=== PATIENT | male | born 1930 | race Caucasian/White ===

== ENCOUNTER 2016-11-20 06:16 | Day surgery (SDC) | payer MEDICARE, BC ==
[~2016-11-20] VITALS: Ht 182.9 cm; Wt 86.4 kg
[2016-11-20] VITALS (9 sets, daily range): BP systolic 126–154; BP diastolic 67–88; PULSE 70–87; RESP 18–22; TEMP 96.5–97.8; O2SAT 94–100
[2016-11-20] MEDS ORDERED: SODIUM CHLOR 0.9% 1000 ML INJ 1,000 ML IV SCH (07:00)
[2016-11-20] MEDS ORDERED: ATOR40TA16 PO (07:10)
[2016-11-20] MEDS ORDERED: LISI10TA3 PO (07:10)
[2016-11-20] MEDS ORDERED: GLIP5TAB8 PO (07:10)
[2016-11-20] MEDS ORDERED: METF1000 PO (07:10)
[2016-11-20] MEDS ORDERED: MULT1TAB84 PO (07:10)
[2016-11-20] MEDS ORDERED: TAMS5CAP PO (07:10)
[2016-11-20] MEDS ORDERED: AMLO5TAB2 PO (07:10)
[2016-11-20] MEDS ORDERED: ASPI-147 PO (07:10)
[2016-11-20] MEDS ORDERED: VITA500T49 PO (07:10)
[2016-11-20 07:23] LABS: AUTOMATED NEUTROPHIL # 3.7 TH/MM3 (1.8-7.7); BASOPHIL % 0.7 % (0.0-2.0); EOSINOPHIL # 0.2 TH/MM3 (0-0.4); EOSINOPHIL % 2.3 % (0.0-4.0); HEMATOCRIT 31.9 % (39.0-51.0); HEMO FLAGS DIFF FINAL; LYMPH % 31.3 % (9.0-44.0); MEAN CELL VOLUME 92.2 FL (80.0-100.0); MEAN CORPUSCULAR HEMOGLOBIN 30.6 PG (27.0-34.0); MEAN CORPUSCULAR HGB CONC 33.2 % (32.0-36.0); MONO % 9.2 % (0.0-8.0); NEUT % 56.5 % (16.0-70.0); PLATELET COUNT 241 TH/MM3 (150-450); RED BLOOD COUNT 3.46 MIL/MM3 (4.50-5.90); RED CELL DISTRIBUTION WIDTH 12.6 % (11.6-17.2); WHITE BLOOD COUNT 6.5 TH/MM3 (4.0-11.0)
[2016-11-20 07:31] LABS: PROTHROMBIN TIME - PATIENT 10.7 SEC (9.8-11.6)
[2016-11-20] MEDS ORDERED: LIDOCAINE 1%/EPINEPHrine 1:100,000 SOLN 20 ML VIAL ONE (07:42)
[2016-11-20] MEDS ORDERED: MIDAZOLAM HCL 5 MG/5 ML VIAL ONE (08:19)
[2016-11-20] MEDS ORDERED: fentaNYL CITRATE 250 MCG/5 ML AMP ONE (08:19)
[2016-11-20 10:18] LABS: AUTOMATED NEUTROPHIL # 3.7 TH/MM3 (1.8-7.7); BASOPHIL % 0.5 % (0.0-2.0); EOSINOPHIL # 0.1 TH/MM3 (0-0.4); EOSINOPHIL % 1.2 % (0.0-4.0); HEMATOCRIT 30.4 % (39.0-51.0); HEMO FLAGS DIFF FINAL; LYMPH % 48.3 % (9.0-44.0); LYMPHOCYTE # 4.2 TH/MM3 (1.0-4.8); MEAN CELL VOLUME 92.8 FL (80.0-100.0); MEAN CORPUSCULAR HEMOGLOBIN 30.5 PG (27.0-34.0); MEAN CORPUSCULAR HGB CONC 32.9 % (32.0-36.0); MONO % 7.4 % (0.0-8.0); NEUT % 42.6 % (16.0-70.0); PLATELET COUNT 237 TH/MM3 (150-450); RED BLOOD COUNT 3.27 MIL/MM3 (4.50-5.90); RED CELL DISTRIBUTION WIDTH 12.7 % (11.6-17.2); WHITE BLOOD COUNT 8.7 TH/MM3 (4.0-11.0)
--- NOTE | 2016-11-20 12:27 | RADRPT ---
EXAM DATE/TIME: 11/20/2016 08:32 [facility] COMPARISON: No previous studies available for comparison. INDICATIONS : Increasing creatinine SEDATION TIME: 30 minutes BIOPSY SITE: Right kidney MEDICATION(S): 1.) 1.5 mg midazolam (Versed) IV 2.) 75 mcg fentanyl (Sublimaze) IV DEVICE(S): 1.) 18 gauge Temno core biopsy needle MEDICAL HISTORY : Hypertension. Cardiovascular disease. Renal disease, end stage. SURGICAL HISTORY : Coronary artery stent. ENCOUNTER: Initial ACUITY: 2 days PAIN SCORE: 0/10 LOCATION: Right kidney A total of two core specimen(s) were obtained and sent to the laboratory for pathologic evaluation. PROCEDURE: 1. CT guided renal biopsy. 2. Conscious sedation with continuous EKG and oximetry monitoring. 3. EKG and oximetry remained stable throughout the procedure. Prior to the procedure informed consent was obtained. Any appropriate prior imaging studies were rev iewed. Using automated exposure control and adjustment of the mA and/or kV according to patient size, radiat ion dose was kept as low as reasonably achievable to obtain optimal diagnostic quality images. The site was prepped in a sterile fashion. Full sterile technique was used, including cap, mask, jordon rile gloves and gown and a large sterile sheet. Hand hygiene and 2% chlorhexidine and/or betadine/al cohol prep was utilized per protocol for cutaneous antisepsis. The skin and subcutaneous tissues wer e infiltrated with local anesthetic solution. With CT guidance the previously identified target was localized. Biopsy was performed using the presc ribed needle as above. Adequate hemostasis was obtained with compression at the puncture site. Follow-up CT scan reveals no hemorrhage. The patient tolerated the procedure well and there were no complications. The patient was returned to the Radiology Outpatient Unit in stable condition. CONCLUSION: Uncomplicated CT guided biopsy. Cresencio Hartley MD on November 20, 2016 at 12:24 Board Certified Radiologist. This report was verified electronically.
[2016-11-20 12:50] LABS: AUTOMATED NEUTROPHIL # 3.2 TH/MM3 (1.8-7.7); BASOPHIL % 0.6 % (0.0-2.0); EOSINOPHIL # 0.1 TH/MM3 (0-0.4); EOSINOPHIL % 1.1 % (0.0-4.0); HEMATOCRIT 27.6 % (39.0-51.0); HEMO FLAGS DIFF FINAL; LYMPH % 28.3 % (9.0-44.0); LYMPHOCYTE # 1.5 TH/MM3 (1.0-4.8); MEAN CELL VOLUME 91.9 FL (80.0-100.0); MEAN CORPUSCULAR HEMOGLOBIN 31.4 PG (27.0-34.0); MEAN CORPUSCULAR HGB CONC 34.2 % (32.0-36.0); MONO % 8.4 % (0.0-8.0); NEUT % 61.6 % (16.0-70.0); PLATELET COUNT 210 TH/MM3 (150-450); RED CELL DISTRIBUTION WIDTH 12.7 % (11.6-17.2); WHITE BLOOD COUNT 5.3 TH/MM3 (4.0-11.0)
[2016-11-20 13:47] LABS: AUTOMATED NEUTROPHIL # 3.7 TH/MM3 (1.8-7.7); BASOPHIL # 0.1 TH/MM3 (0-0.2); BASOPHIL % 1.1 % (0.0-2.0); EOSINOPHIL # 0.1 TH/MM3 (0-0.4); EOSINOPHIL % 1.1 % (0.0-4.0); HEMO FLAGS DIFF FINAL; LYMPH % 29.5 % (9.0-44.0); LYMPHOCYTE # 1.8 TH/MM3 (1.0-4.8); MEAN CELL VOLUME 92.5 FL (80.0-100.0); MEAN CORPUSCULAR HEMOGLOBIN 30.8 PG (27.0-34.0); MEAN CORPUSCULAR HGB CONC 33.3 % (32.0-36.0); MONO % 8.4 % (0.0-8.0); NEUT % 59.9 % (16.0-70.0); PLATELET COUNT 221 TH/MM3 (150-450); RED BLOOD COUNT 3.02 MIL/MM3 (4.50-5.90); RED CELL DISTRIBUTION WIDTH 12.9 % (11.6-17.2); WHITE BLOOD COUNT 6.3 TH/MM3 (4.0-11.0)
== END 2016-11-20 15:20 | disposition home or self-care (01) ==
LOC: HRAD 06:16 → HRIP 06:18 → HRAD 15:20
PROVIDERS: ATTEND Internal Medicine Nephrology
DX: I12.0 Hypertensive chronic kidney disease with stage 5 chronic kidney disease or end stage renal disease (principal); N18.6 End stage renal disease; I25.10 Atherosclerotic heart disease of native coronary artery without angina pectoris; Z95.5 Presence of coronary angioplasty implant and graft; Z99.2 Dependence on renal dialysis
CPT/HCPCS: 50200; 77012; 85025; 85610; 85730; 88305; 88313; 88346; 88348; 88350; J2250; J3010; J7030

== ENCOUNTER 2017-04-23 14:48 | Observation (INO) | payer MEDICARE, BC ==
[~2017-04-23] VITALS: Ht 182.9 cm; Wt 82.1 kg
[~2017-04-23 14:48] MED LIST: AMLO5TAB2 PO; ASPI-147 PO; ATOR40TA16 PO; GLIP5TAB8 PO; LISI10TA3 PO; METF1000 PO; MULT1TAB84 PO; TAMS5CAP PO; VITA500T35 PO
[2017-04-23 14:53] VITALS: BP 196/98; PULSE 100; RESP 18; TEMP 98.2; O2SAT 98
--- NOTE | 2017-04-23 15:03 | PD ---
HPI Chief Complaint: General Weakness Time Seen by Provider: 14:53 Travel History International Travel<30 days: No Contact w/Intl Traveler<30days: No Traveled to known affect area: No History of Present Illness HPI PATIENT STATES THAT OVER WEEKEND HE STARTED TO FEEL WEAK, GENERALIZED WEAKNESS, ON SATURDAY HAD DIALYSIS BUT WAS TURNED AWAY ON SATURDAY DUE TO SHINGLES...HE PRESENTED TO [facility] WHERE he was prescribed valtrex and steroids. PFSH Past Medical History Cancer: Yes (SKIN CA) Cardiovascular Problems: Yes (HEART STENT 1998, CAD, [place]) Diabetes: Yes Patient Takes Glucophage: Yes Dialysis: Yes Endocrine: Yes (DIABETES) Genitourinary: Yes (HYDRONEPHROSIS) Hepatitis: Yes Hiatal Hernia: No Hypertension: Yes Immune Disorder: No Musculoskeletal: No Neurologic: No Psychiatric: No Reproductive: No Respiratory: No Immunizations Current: No Thyroid Disease: No Influenza Vaccination: No ?: Not Past Surgical History AICD: No Genitourinary Surgery: Yes (LITHOTRIPSY) Joint Replacement: No Pacemaker: No Social History Alcohol Use: No Tobacco Use: No Substance Use: No Allergies-Medications (Allergen,Severity, Reaction): Coded Allergies: No Known Allergies (Unverified , 04/23/17) Reported Meds & Prescriptions Reported Meds & Active Scripts Active Reported Valacyclovir (Valacyclovir HCl) 500 Mg Tab 500 Mg PO DAILY Dexamethasone 4 Mg Tab 20 Mg PO WEEKLY Multiple Vitamin 1 Tab 1 Tab PO DAILY Sodium Bicarbonate 650 Mg Tab 650 Mg PO BIDPC Vitamin B12 (Cyanocobalamin) 500 Mcg Tab 1,000 Mcg PO DAILY Glipizide 5 Mg Tab 5 Mg PO BIDAC Take 30 minutes before a meal Atorvastatin (Atorvastatin Calcium) 40 Mg Tab 40 Mg PO HS Flomax (Tamsulosin HCl) 0.4 Mg Cap 0.4 Mg PO HS Ecotrin Low Strength (Aspirin) 81 Mg Tabdr 81 Mg PO DAILY Physical Exam Narrative GENERAL: SKIN: Warm and dry. SKIN IN FRONT OF CHEST OVER LEFT PEC AND OVER LEFT CHEEK AREA HEAD: Atraumatic. Normocephalic. EYES: Pupils equal and round. No scleral icterus. No injection or drainage. ENT: No nasal bleeding or discharge. Mucous membranes pink and moist. NECK: Trachea midline. No JVD. CARDIOVASCULAR: Regular rate and rhythm. RESPIRATORY: No accessory muscle use. Clear to auscultation. Breath sounds equal bilaterally. GASTROINTESTINAL: Abdomen soft, non-tender, nondistended. MUSCULOSKELETAL: Extremities without clubbing, cyanosis, or edema. No obvious deformities. NEUROLOGICAL: Awake and alert. No obvious cranial nerve deficits. Motor grossly within normal limits. Five out of 5 muscle strength in the arms and legs. Normal speech. PSYCHIATRIC: Appropriate mood and affect; insight and judgment normal. Data Data Last Documented VS Vital Signs Date Time Temp Pulse Resp B/P (MAP) Pulse Ox O2 Delivery O2 Flow Rate FiO2 04/23/17 15:15 93 18 188/98 (128) 99 Room Air 04/23/17 14:53 98.2 Orders Orders Electrocardiogram (04/23/17 14:53) Complete Blood Count With Diff (04/23/17 14:53) Comprehensive Metabolic Panel (04/23/17 14:53) Ckmb (Isoenzyme) Profile (04/23/17 14:53) Troponin I (04/23/17 14:53) Lipase (04/23/17 14:53) Group A Rapid Strep Screen (04/23/17 14:53) Influenzae A/B Antigen (04/23/17 14:53) Chest, Single Ap (04/23/17 14:53) Ct Brain W/O Iv Contrast(Rout) (04/23/17 14:53) Iv Access Insert/Monitor (04/23/17 14:53) Ecg Monitoring (04/23/17 14:53) Oximetry (04/23/17 14:53) Strep Culture (Group A) (04/23/17 15:00) Aspirin Chew (Aspirin Chew) (04/23/17 16:45) Acetamin-Hydrocod 325-5 Mg ([place] 5-325 (04/23/17 17:00) Consult Nephrology (04/23/17 ) Place In Observation (04/23/17 ) Vital Signs (Adult) Q4H (04/23/17 16:58) Activity Oob With Assistance (04/23/17 16:58) Sodium Chloride 0.9% Flush (Ns Flush) (04/23/17 17:00) Sodium Chloride 0.9% Flush (Ns Flush) (04/23/17 21:00) Acetaminophen (Tylenol) (04/23/17 17:00) Ondansetron Inj (Zofran Inj) (04/23/17 17:00) Pt Request For Service (04/23/17 16:58) Scd Bilateral/Knee High DELLA.BID (04/23/17 16:58) Acetamin-Hydrocod 325-5 Mg ([place] 5-325 (04/23/17 17:00) Naloxone Inj (Narcan Inj) (04/23/17 17:00) Docusate Sodium-Senna (Kendy-Colace) (04/23/17 21:00) Magnesium Hydroxide Liq (Milk Of Magnesi (04/23/17 17:00) Sennosides (Senokot) (04/23/17 17:00) Bisacodyl Supp (Dulcolax Supp) (04/23/17 17:00) Lactulose Liq (Lactulose Liq) (04/23/17 17:00) Amlodipine (Norvasc) (04/24/17 09:00) Aspirin Ec (Ecotrin Ec) (04/24/17 09:00) Atorvastatin (Lipitor) (04/23/17 21:00) Cyanocobalamin (Vitamin B12) (04/24/17 09:00) Tamsulosin (Flomax) (04/23/17 21:00) Valacyclovir (Valtrex) (04/24/17 09:00) Multivitamin (Theragran) (04/24/17 09:00) Admit Order (Ed Use Only) (04/23/17 ) Diet 1999 Ada Cons Carb (04/23/17 Dinner) Bedside Glucose DELLA.CSUGAR (04/23/17 17:00) Blood Glucose Goal (Criteria) (04/23/17 17:00) Hypoglycemia 70 Mg/Dl Or < (04/23/17 17:00) Notify Dr: Other (04/23/17 17:00) Dextrose 50% In Justin (Vial) Inj (D50w (Vi (04/23/17 17:00) Glucagon Inj (Glucagon Inj) (04/23/17 17:00) Insulin Aspart Supplemtl Scale (Novolog (04/23/17 17:00) Sodium Bicarbonate (Sodium Bicarbonate) (04/23/17 18:00) Labs Laboratory Tests Test 04/23/17 15:30 White Blood Count 5.8 TH/MM3 Red Blood Count 2.71 MIL/MM3 Hemoglobin 8.3 GM/DL Hematocrit 24.7 % Mean Corpuscular Volume 91.2 FL Mean Corpuscular Hemoglobin 30.5 PG Mean Corpuscular Hemoglobin Concent 33.4 % Red Cell Distribution Width 11.9 % Platelet Count 118 TH/MM3 Mean Platelet Volume 9.9 FL Neutrophils (%) (Auto) 68.7 % Lymphocytes (%) (Auto) 16.1 % Monocytes (%) (Auto) 14.5 % Eosinophils (%) (Auto) 0.3 % Basophils (%) (Auto) 0.4 % Neutrophils # (Auto) 4.1 TH/MM3 Lymphocytes # (Auto) 0.9 TH/MM3 Monocytes # (Auto) 0.8 TH/MM3 Eosinophils # (Auto) 0.0 TH/MM3 Basophils # (Auto) 0.0 TH/MM3 CBC Comment DIFF FINAL Differential Comment Blood Urea Nitrogen 59 MG/DL Creatinine 6.00 MG/DL Random Glucose 140 MG/DL Total Protein 6.6 GM/DL Albumin 3.1 GM/DL Calcium Level 8.3 MG/DL Alkaline Phosphatase 49 U/L Aspartate Amino Transf (AST/SGOT) 7 U/L Alanine Aminotransferase (ALT/SGPT) 13 U/L Total Bilirubin 0.6 MG/DL Sodium Level 136 MEQ/L Potassium Level 4.3 MEQ/L Chloride Level 104 MEQ/L Carbon Dioxide Level 22.3 MEQ/L Anion Gap 10 MEQ/L Estimat Glomerular Filtration Rate 9 ML/MIN Total Creatine Kinase 65 U/L Troponin I 0.09 NG/ML Lipase 212 U/L MDM Medical Decision Making Medical Screen Exam Complete: Yes Emergency Medical Condition: Yes Medical Record Reviewed: Yes Interpretation(s) NSR 95, PVC, NO STEMI PATTERN, Differential Diagnosis FLU V PNA V ELECTROLYTE ABNL V PULM EDEMA Narrative Course signed out pending labs, ct results and dispo by dr duque Diagnosis Primary Impression: Generalized weakness Additional Impression: Anemia Scripts Amlodipine (Amlodipine) 5 Mg Tab 5 MG PO BID for Blood Pressure Management, #60 TAB 0 Refills Prov: Barbara mR MD 04/24/17 Jose D Brown MD Apr 23, 2017 15:03
[2017-04-23 15:15] VITALS: BP 188/98; PULSE 93; RESP 18; O2SAT 99
[2017-04-23] MEDS ORDERED: SODI650T PO (15:21)
[2017-04-23] MEDS ORDERED: VALA500T PO (15:21)
[2017-04-23] MEDS ORDERED: MULTTAB67 PO (15:21)
[2017-04-23] MEDS ORDERED: DEXA4TAB PO (15:21)
[2017-04-23 15:37] LABS: AUTOMATED NEUTROPHIL # 4.1 TH/MM3 (1.8-7.7); BASOPHIL % 0.4 % (0.0-2.0); EOSINOPHIL % 0.3 % (0.0-4.0); HEMATOCRIT 24.7 % (39.0-51.0); LYMPH % 16.1 % (9.0-44.0); LYMPHOCYTE # 0.9 TH/MM3 (1.0-4.8); MEAN CELL VOLUME 91.2 FL (80.0-100.0); MEAN CORPUSCULAR HEMOGLOBIN 30.5 PG (27.0-34.0); MEAN CORPUSCULAR HGB CONC 33.4 % (32.0-36.0); MONO % 14.5 % (0.0-8.0); NEUT % 68.7 % (16.0-70.0); PLATELET COUNT 118 TH/MM3 (150-450); RED BLOOD COUNT 2.71 MIL/MM3 (4.50-5.90); RED CELL DISTRIBUTION WIDTH 11.9 % (11.6-17.2); WHITE BLOOD COUNT 5.8 TH/MM3 (4.0-11.0)
[2017-04-23 15:44] LABS: HEMO FLAGS DIFF FINAL
[2017-04-23 15:47] LABS: CHLORIDE 104 MEQ/L (98-107); POTASSIUM 4.3 MEQ/L (3.5-5.1); SODIUM (NA) 136 MEQ/L (136-145)
[2017-04-23 15:51] LABS: ANION GAP 10 MEQ/L (5-15); BICARBONATE 22.3 MEQ/L (21.0-32.0); BLOOD UREA NITROGEN 59 MG/DL (7-18)
[2017-04-23 15:54] LABS: ALT (GPT) 13 U/L (12-78); AST (GOT) 7 U/L (15-37); GLOMERULAR FILTRATION RATE 9 ML/MIN (>89)
[2017-04-23 15:55] LABS: TOTAL BILIRUBIN ADULT 0.6 MG/DL (0.2-1.0)
[2017-04-23 15:57] LABS: ALKALINE PHOSPHATASE 49 U/L (45-117)
[2017-04-23 16:00] LABS: CREATINE KINASE 65 U/L (39-308)
--- NOTE | 2017-04-23 16:01 | RADRPT ---
EXAM DATE/TIME: 04/23/2017 15:52 [facility] COMPARISON: No previous studies available for comparison. INDICATIONS : Weakness and short of breath for 1 week. MEDICAL HISTORY : Hypertension. Cardiovascular disease. Renal disease, end stage. SURGICAL HISTORY : Coronary artery stent. ENCOUNTER: Initial ACUITY: 1 week PAIN SCORE: 2/10 LOCATION: Bilateral chest FINDINGS: A single view of the chest demonstrates the lungs to be symmetrically aerated without evidence of mas s, infiltrate or effusion. The cardiomediastinal contours are unremarkable. Osseous structures are intact. Dialysis catheter is in good position CONCLUSION: No acute disease. Grey Hernandez MD on April 23, 2017 at 15:57 Board Certified Radiologist. This report was verified electronically.
--- NOTE | 2017-04-23 16:20 | RADRPT ---
EXAM DATE/TIME: 04/23/2017 16:01 [facility] COMPARISON: No previous studies available for comparison. INDICATIONS : Generalized weakness for 3 days RADIATION DOSE: 56.51 CTDIvol (mGy) MEDICAL HISTORY : Hypertension. Diabetes mellitus type 2. Renal calculi.Skin cancer, renal disease SURGICAL HISTORY : None. ENCOUNTER: Initial ACUITY: 3 days PAIN SCALE: 0/10 LOCATION: cranial TECHNIQUE: Multiple contiguous axial images were obtained of the head. Using automated exposure control and adj ustment of the mA and/or kV according to patient size, radiation dose was kept as low as reasonably a chievable to obtain optimal diagnostic quality images. DICOM format image data is available electro nically for review and comparison. FINDINGS: CEREBRUM: The ventricles are normal for age. No evidence of midline shift, mass lesion, hemorrhage or acute in farction. No extra-axial fluid collections are seen. POSTERIOR FOSSA: The cerebellum and brainstem are intact. The 4th ventricle is midline. The cerebellopontine angle i s unremarkable. EXTRACRANIAL: The visualized portion of the orbits is intact. SKULL: The calvaria is intact. No evidence of skull fracture. CONCLUSION: 1. No evidence of acute intracranial pathology. No masses are identified. Jigar Griffin MD on April 23, 2017 at 16:18 Board Certified Radiologist. This report was verified electronically.
[2017-04-23] MEDS ORDERED: ASPIRIN 81 MG CHEW TAB CHEW ONE (16:45)
[2017-04-23] MEDS ORDERED: ACETAMINOPHEN 325 MG TAB PO PRN ×2 (17:00→17:45)
[2017-04-23] MEDS ORDERED: ACETAMINOPHEN/HYDROcodone 325 MG/5 MG TAB PO PRN (17:00)
[2017-04-23] MEDS ORDERED: ACETAMINOPHEN/HYDROcodone 325 MG/5 MG TAB PO ONE (17:00)
[2017-04-23] MEDS ORDERED: BISACODYL 10 MG SUPP RECTAL PRN (17:00)
[2017-04-23] MEDS ORDERED: NALOXONE HCL 0.4 MG/ML AMP IV PUSH PRN (17:00)
[2017-04-23] MEDS ORDERED: MAGNESIUM HYDROXIDE SUSP 30 ML CUP PO PRN (17:00)
[2017-04-23] MEDS ORDERED: LACTULOSE SYRUP 20 GM/30 ML CUP PO PRN (17:00)
[2017-04-23] MEDS ORDERED: ONDANSETRON HCL 4 MG/2 ML VIAL IVP PRN (17:00)
[2017-04-23] MEDS ORDERED: SODIUM CHLORIDE 0.9% FLUSH 10 ML FLUSH IV FLUSH PRN ×2 (17:00→17:45)
[2017-04-23] MEDS: INSULIN ASPART SUPPLEMENTAL SCALE SQ SCH ×2 (17:00→21:18)
[2017-04-23] MEDS ORDERED: GLUCAGON 1 MG/ML VIAL OTHER PRN (17:00)
[2017-04-23] MEDS ORDERED: SENNOSIDES 8.6 MG TAB PO PRN (17:00)
[2017-04-23] MEDS ORDERED: DEXTROSE 50% IN WATER 50 ML VIAL(D50) IV PUSH PRN (17:00)
[2017-04-23 17:08] VITALS: BP 216/105; PULSE 98; RESP 18; O2SAT 96
[2017-04-23] MEDS ORDERED: cloNIDine HCL 0.1 MG TAB PO ONE (17:30)
[2017-04-23] MEDS ORDERED: cloNIDine HCL 0.1 MG TAB PO PRN ×2 (17:30→17:45)
[2017-04-23] MEDS ORDERED: SODIUM CHLOR 0.9% 1000 ML INJ 1,000 ML IV PRN (17:35)
[2017-04-23] MEDS ORDERED: SODIUM CHLOR 0.9% 1000 ML INJ 1,000 ML OTHER PRN ×2 (17:35)
--- NOTE | 2017-04-23 17:36 | PD ---
Data Data Last Documented VS Vital Signs Date Time Temp Pulse Resp B/P (MAP) Pulse Ox O2 Delivery O2 Flow Rate FiO2 04/23/17 15:15 93 18 188/98 (128) 99 Room Air 04/23/17 14:53 98.2 Orders Orders Electrocardiogram (04/23/17 14:53) Complete Blood Count With Diff (04/23/17 14:53) Comprehensive Metabolic Panel (04/23/17 14:53) Ckmb (Isoenzyme) Profile (04/23/17 14:53) Troponin I (04/23/17 14:53) Lipase (04/23/17 14:53) Group A Rapid Strep Screen (04/23/17 14:53) Influenzae A/B Antigen (04/23/17 14:53) Chest, Single Ap (04/23/17 14:53) Ct Brain W/O Iv Contrast(Rout) (04/23/17 14:53) Iv Access Insert/Monitor (04/23/17 14:53) Ecg Monitoring (04/23/17 14:53) Oximetry (04/23/17 14:53) Strep Culture (Group A) (04/23/17 15:00) Aspirin Chew (Aspirin Chew) (04/23/17 16:45) Acetamin-Hydrocod 325-5 Mg ([place] 5-325 (04/23/17 17:00) Consult Nephrology (04/23/17 ) Place In Observation (04/23/17 ) Vital Signs (Adult) Q4H (04/23/17 16:58) Activity Oob With Assistance (04/23/17 16:58) Sodium Chloride 0.9% Flush (Ns Flush) (04/23/17 17:00) Sodium Chloride 0.9% Flush (Ns Flush) (04/23/17 21:00) Acetaminophen (Tylenol) (04/23/17 17:00) Ondansetron Inj (Zofran Inj) (04/23/17 17:00) Pt Request For Service (04/23/17 16:58) Scd Bilateral/Knee High DELLA.BID (04/23/17 16:58) Acetamin-Hydrocod 325-5 Mg ([place] 5-325 (04/23/17 17:00) Naloxone Inj (Narcan Inj) (04/23/17 17:00) Docusate Sodium-Senna (Kendy-Colace) (04/23/17 21:00) Magnesium Hydroxide Liq (Milk Of Magnesi (04/23/17 17:00) Sennosides (Senokot) (04/23/17 17:00) Bisacodyl Supp (Dulcolax Supp) (04/23/17 17:00) Lactulose Liq (Lactulose Liq) (04/23/17 17:00) Amlodipine (Norvasc) (04/24/17 09:00) Aspirin Ec (Ecotrin Ec) (04/24/17 09:00) Atorvastatin (Lipitor) (04/23/17 21:00) Cyanocobalamin (Vitamin B12) (04/24/17 09:00) Tamsulosin (Flomax) (04/23/17 21:00) Valacyclovir (Valtrex) (04/24/17 09:00) Multivitamin (Theragran) (04/24/17 09:00) Admit Order (Ed Use Only) (04/23/17 ) Diet 1999 [place] Cons Carb (04/23/17 Dinner) Bedside Glucose DELLA.CSUGAR (04/23/17 17:00) Blood Glucose Goal (Criteria) (04/23/17 17:00) Hypoglycemia 70 Mg/Dl Or < (04/23/17 17:00) Notify Dr: Other (04/23/17 17:00) Dextrose 50% In Justin (Vial) Inj (D50w (Vi (04/23/17 17:00) Glucagon Inj (Glucagon Inj) (04/23/17 17:00) Insulin Aspart Supplemtl Scale (Novolog (04/23/17 17:00) Sodium Bicarbonate (Sodium Bicarbonate) (04/23/17 18:00) Labs Laboratory Tests Test 04/23/17 15:30 White Blood Count 5.8 TH/MM3 Red Blood Count 2.71 MIL/MM3 Hemoglobin 8.3 GM/DL Hematocrit 24.7 % Mean Corpuscular Volume 91.2 FL Mean Corpuscular Hemoglobin 30.5 PG Mean Corpuscular Hemoglobin Concent 33.4 % Red Cell Distribution Width 11.9 % Platelet Count 118 TH/MM3 Mean Platelet Volume 9.9 FL Neutrophils (%) (Auto) 68.7 % Lymphocytes (%) (Auto) 16.1 % Monocytes (%) (Auto) 14.5 % Eosinophils (%) (Auto) 0.3 % Basophils (%) (Auto) 0.4 % Neutrophils # (Auto) 4.1 TH/MM3 Lymphocytes # (Auto) 0.9 TH/MM3 Monocytes # (Auto) 0.8 TH/MM3 Eosinophils # (Auto) 0.0 TH/MM3 Basophils # (Auto) 0.0 TH/MM3 CBC Comment DIFF FINAL Differential Comment Blood Urea Nitrogen 59 MG/DL Creatinine 6.00 MG/DL Random Glucose 140 MG/DL Total Protein 6.6 GM/DL Albumin 3.1 GM/DL Calcium Level 8.3 MG/DL Alkaline Phosphatase 49 U/L Aspartate Amino Transf (AST/SGOT) 7 U/L Alanine Aminotransferase (ALT/SGPT) 13 U/L Total Bilirubin 0.6 MG/DL Sodium Level 136 MEQ/L Potassium Level 4.3 MEQ/L Chloride Level 104 MEQ/L Carbon Dioxide Level 22.3 MEQ/L Anion Gap 10 MEQ/L Estimat Glomerular Filtration Rate 9 ML/MIN Total Creatine Kinase 65 U/L Troponin I 0.09 NG/ML Lipase 212 U/L MDM Supervised Visit with TARE: No Narrative Course Patient care assumed from Dr. Brown at 1600. 86-year-old male presents with generalized weakness. I was asked to follow-up the labs CAT scan and disposition the patient properly. CT head negative, basic labs are notable for creatinine of 6, BUNs of 50. Patient does have an elevated troponin to 0.09. He went to have dialysis done yesterday and was turned away for active shingles infection on the left side of his chest although his dialysis axis is on the right. On my reassessment the patient is complaining of left-sided chest and neck pain. This is the area where his shingles have outbreak. He has seen a texturing machine fixer in the past and has a history of stents but has not seen a texturing machine fixer in years. At this time with his elevated troponin I think that admission to the hospital for further workup is warranted. This was discussed with Dr. Rm who is agreeable. Diagnosis Primary Impression: Generalized weakness Additional Impression: Anemia Qualified Codes: N18.6 - End stage renal disease; D63.1 - Anemia in chronic kidney disease; Z99.2 - Dependence on renal dialysis Admitting Information Admitting Physician Requests: Observation Condition: Stable Cresencio Henley MD Apr 23, 2017 17:36
--- NOTE | 2017-04-23 17:38 | HHI.HP ---
[facility] Unknown Admission Diagnosis Chest pain, ESRD, Uremia, Weankess, Anemia. Diagnoses: Travel History International Travel<30 Days: No Contact w/Intl Traveler <30 Da: No Traveled to Known Affected Are: No History of Present Illness This is a pleasant 86 year-old male with past medical history of type 2 diabetes, end-stage renal disease who started dialysis 4 days ago who presents to the ER today complaining of generalized weakness. He states he's been feeling run down and getting weaker over the past several days. He denies any falls. He states she's been ambulating okay but that he just feels weak. He recently has been treated for shingles over the left anterior chest wall. He states that it was hurting several days ago but no longer hurts. He denies any chest pain whatsoever. He missed his dialysis on Saturday because he was told he could not have it due to the shingles. The patient does endorse some chronic shortness of breath with exertion. Denies any pedal edema. Blood pressure in the emergency department elevated 200/100. He denies fever or chills cough dysuria and nausea vomiting abdominal pain blurred vision double vision paresthesias unilateral weakness or dysarthria. Review of Systems Constitutional: DENIES: Fever Eyes: DENIES: Blurred vision, Diplopia Ears, nose, mouth, throat: DENIES: Throat pain, Odynophagia Respiratory: COMPLAINS OF: Shortness of breath, DENIES: Cough Cardiovascular: DENIES: Chest pain, Palpitations, Lower Extremity Edema Gastrointestinal: DENIES: Abdominal pain, Nausea, Vomiting Genitourinary: DENIES: Urgency, Dysuria Musculoskeletal: DENIES: Back pain, Neck pain Integumentary: COMPLAINS OF: Rash, DENIES: Pruritus Hematologic/lymphatic: DENIES: Lymphadenopathy Neurologic: DENIES: Abnormal gait, Headache Psychiatric: DENIES: Anxiety, Confusion Past Family Social History Past Medical History Type 2 diabetes Shingles End-stage renal disease Hypertension BPH Coronary artery disease with history of stent 20 years ago Kidney stones Anemia of chronic kidney disease Past Surgical History Procedure for kidney stone Right chest permacath Reported Medications Allergies Coded Allergies Type Severity Reaction Last Updated Verified No Known Allergies 04/23/17 No Active Scripts Medications Dose Route/Sig Max Daily Dose Days Date Category Dose Instructions Valacyclovir (Valacyclovir HCl) 500 Mg Tab 500 Mg PO DAILY 04/23/17 Reported Dexamethasone 4 Mg Tab 20 Mg PO WEEKLY 04/23/17 Reported Multiple Vitamin 1 Tab 1 Tab PO DAILY 04/23/17 Reported Sodium Bicarbonate 650 Mg Tab 650 Mg PO BIDPC 04/23/17 Reported Amlodipine (Amlodipine Besylate) 5 Mg Tab 5 Mg PO DAILY 11/20/16 Reported Vitamin B12 (Cyanocobalamin) 500 Mcg Tab 1,000 Mcg PO DAILY 11/20/16 Reported Glipizide 5 Mg Tab 5 Mg PO BIDAC 11/20/16 Reported Take 30 minutes before a meal Atorvastatin (Atorvastatin Calcium) 40 Mg Tab 40 Mg PO HS 11/20/16 Reported Flomax (Tamsulosin HCl) 0.4 Mg Cap 0.4 Mg PO HS 11/20/16 Reported Ecotrin Low Strength (Aspirin) 81 Mg Tabdr 81 Mg PO DAILY 11/20/16 Reported Allergies: Coded Allergies: No Known Allergies (Unverified , 04/23/17) Family History Reviewed and noncontributory Social History He does not drink or smoke. He lives with his . Physical Exam Vital Signs Vital Signs Date Time Temp Pulse Resp B/P (MAP) Pulse Ox O2 Delivery O2 Flow Rate FiO2 04/23/17 17:08 98 18 216/105 (142) 96 Room Air 04/23/17 15:15 93 18 188/98 (128) 99 Room Air 04/23/17 14:53 98.2 100 18 196/98 (130) 98 Physical Exam GENERAL: This is a well-nourished, well-developed elderly male patient , in no apparent distress. SKIN: No rashes, ecchymoses or lesions. Cool and dry. HEAD: Atraumatic. Normocephalic. No temporal or scalp tenderness. EYES: Pupils equal round and reactive. Extraocular motions intact. No scleral icterus. No injection or drainage. ENT: Nose without bleeding, purulent drainage or septal hematoma. Throat without erythema, tonsillar hypertrophy or exudate. Uvula midline. Airway patent. NECK: Trachea midline. No JVD or lymphadenopathy. Supple, nontender, no meningeal signs. CARDIOVASCULAR: Regular rate and rhythm without murmurs, gallops, or rubs. RESPIRATORY: Clear to auscultation. Breath sounds equal bilaterally. No wheezes , rales, or rhonchi. GASTROINTESTINAL: Abdomen soft, non-tender, nondistended. No hepato-splenomegaly , or palpable masses. No guarding. MUSCULOSKELETAL: Extremities without clubbing, cyanosis, or edema. No joint tenderness, effusion, or edema noted. No calf tenderness. Negative Homans sign bilaterally. NEUROLOGICAL: Awake and alert. Cranial nerves II through XII intact. Motor and sensory grossly within normal limits. Five out of 5 muscle strength in all muscle groups. Normal speech. Laboratory Laboratory Tests Test 04/23/17 15:30 White Blood Count 5.8 Red Blood Count 2.71 Hemoglobin 8.3 Hematocrit 24.7 Mean Corpuscular Volume 91.2 Mean Corpuscular Hemoglobin 30.5 Mean Corpuscular Hemoglobin Concent 33.4 Red Cell Distribution Width 11.9 Platelet Count 118 Mean Platelet Volume 9.9 Neutrophils (%) (Auto) 68.7 Lymphocytes (%) (Auto) 16.1 Monocytes (%) (Auto) 14.5 Eosinophils (%) (Auto) 0.3 Basophils (%) (Auto) 0.4 Neutrophils # (Auto) 4.1 Lymphocytes # (Auto) 0.9 Monocytes # (Auto) 0.8 Eosinophils # (Auto) 0.0 Basophils # (Auto) 0.0 CBC Comment DIFF FINAL Differential Comment Blood Urea Nitrogen 59 Creatinine 6.00 Random Glucose 140 Total Protein 6.6 Albumin 3.1 Calcium Level 8.3 Alkaline Phosphatase 49 Aspartate Amino Transf (AST/SGOT) 7 Alanine Aminotransferase (ALT/SGPT) 13 Total Bilirubin 0.6 Sodium Level 136 Potassium Level 4.3 Chloride Level 104 Carbon Dioxide Level 22.3 Anion Gap 10 Estimat Glomerular Filtration Rate 9 Total Creatine Kinase 65 Troponin I 0.09 Lipase 212 Date/Time Source Procedure Growth Status 04/23/17 15:00 Throat Group A Streptococcus Screen Pending Received Result Diagram: 04/23/17 1530 04/23/17 153 Caprini VTE Risk Assessment Caprini VTE Risk Assessment: Mod/High Risk (score >= 2) Caprini Risk Assessment Model Point Value = 1 Point Value = 2 Point Value = 3 Point Value = 5 Age 41-60 Minor surgery BMI > 25 kg/m2 Swollen legs Varicose veins or History of unexplained or recurrent spontaneous Oral contraceptives or hormone replacement Sepsis (< 1 month) Serious lung disease, including pneumonia (< 1 month) Abnormal pulmonary function Acute myocardial infarction Congestive heart failure (< 1 month) History of inflammatory bowel disease Medical patient at bed rest Age 61-74 Arthroscopic surgery Major open surgery (> 45 min) Laparoscopic surgery (> 45 min) Malignancy Confined to bed (> 72 hours) Immobilizing plaster cast Central venous access Age >= 75 History of VTE Family history of VTE Factor V Leiden Prothrombin [id number] Lupus anticoagulant Anticardiolipin antibodies Elevated serum homocysteine Heparin-induced thrombocytopenia Other congenital or acquired thrombophilia Stroke (< 1 month) Elective arthroplasty Hip, pelvis, or leg fracture Acute spinal cord injury (< 1 month) Prophylaxis Regimen Total Risk Factor Score Risk Level Prophylaxis Regimen 0-1 Low Early ambulation 2 Moderate Order ONE of the following: *Sequential Compression Device (SCD) *Heparin 5000 units SQ BID 3-4 Higher Order ONE of the following medications: *Heparin 5000 units SQ TID *Enoxaparin/Lovenox 40 mg SQ daily (WT < 150 kg, CrCl > 30 mL/min) *Enoxaparin/Lovenox 30 mg SQ daily (WT < 150 kg, CrCl > 10-29 mL/min) *Enoxaparin/Lovenox 30 mg SQ BID (WT < 150 kg, CrCl > 30 mL/min) AND/OR *Sequential Compression Device (SCD) 5 or more Highest Order ONE of the following medications: *Heparin 5000 units SQ TID (Preferred with Epidurals) *Enoxaparin/Lovenox 40 mg SQ daily (WT < 150 kg, CrCl > 30 mL/min) *Enoxaparin/Lovenox 30 mg SQ daily (WT < 150 kg, CrCl > 10-29 mL/min) *Enoxaparin/Lovenox 30 mg SQ BID (WT < 150 kg, CrCl > 30 mL/min) AND *Sequential Compression Device (SCD) Assessment and Plan Problem List: (1) Generalized weakness ICD Code: R53.1 - Weakness Status: Acute Assessment and Plan -Generalized weakness. We'll place in observation and get physical therapy consultation. Urinalysis chest x-ray are clear. -Shingles of anterior chest wall. Continue Valtrex. -Hypertensive urgency. We'll treat with clonidine, additionally resume his home medications. -End-stage renal disease and just started dialysis last Saturday. He has a right chest permacath. His brake rider is Dr. Buchanan. Currently does not appear to be in any fluid overload or an urgent need of dialysis. I did consult Dr. Buchanan and discussed the patient with him. -Mild elevated troponin 0.10. The patient states that he had a catheterization with stent 20 years ago. He adamantly denies any chest pain other than the several days ago he had some pain over the left chest where the shingles rashes. Will not trend any further troponin due to his absence of symptoms as the mild elevation is likely due to his poor kidney function and hypertensive urgency. -Type [address] on sliding scale insulin. -BPH. Continue Flomax. -Anemia of chronic kidney disease. Repeat CBC in the morning to ensure stability of hemoglobin. -DVT prophylaxis with SCDs. Barbara Rm MD Apr 23, 2017 17:38
[2017-04-23] MEDS ORDERED: EPOETIN ALFA 10,000 UNITS/ML VIAL IV PUSH PRN (17:45)
[2017-04-23] MEDS ORDERED: ONDANSETRON HCL 4 MG/2 ML VIAL IV PUSH PRN (17:45)
[2017-04-23] MEDS ORDERED: MANNITOL 12.5 GM/50 ML VIAL IV PRN (17:45)
[2017-04-23] MEDS ORDERED: NITROGLYCERIN 0.4 MG SL 25 TABS/BTL SL PRN (17:45)
[2017-04-23] MEDS ORDERED: ALBUMIN HUMAN 25% 25 GM/100 ML BAGP IV PRN (17:45)
[2017-04-23] MEDS ORDERED: GENTAMICIN SULFATE (DIALYSIS USE ONLY) 20 MG/2 ML VIAL OTHER PRN (17:45)
[2017-04-23] MEDS ORDERED: GELATIN 12 MM/7 MM FOAM TOP PRN (17:45)
[2017-04-23] MEDS ORDERED: HEPARIN SODIUM - IV 10,000 UNITS/10 ML VIAL IV FLUSH PRN (17:45)
[2017-04-23] MEDS ORDERED: HEPARIN SODIUM - IV 10,000 UNITS/10 ML VIAL PRN (17:45)
[2017-04-23] MEDS ORDERED: diphenhydrAMINE HCL 25 MG CAP PO PRN (17:45)
--- NOTE | 2017-04-23 17:45 | PD.CONS ---
HPI Service Nephrology Consult Requested By Dr. Rm Reason for Consult ESRD Primary Care Physician Unknown History of Present Illness 86 year old male with ESRD just started on Hemodialysis, Multiple myeloma came down with Rash thought to be Shingles on left side of chest, he just feels tired , he missed dialysis on Saturday due to rash, he is passing urine and feels tired and exhausted, his Troponin was 0.09, BP elevated SBP 216/ DBP 105 Review of Systems Constitutional: COMPLAINS OF: Fatigue Musculoskeletal: COMPLAINS OF: Joint pain, Muscle aches, Stiffness Integumentary: COMPLAINS OF: Abnormal pigmentation, Rash Immunologic/allergic: COMPLAINS OF: Eczema Neurologic: COMPLAINS OF: Abnormal gait Psychiatric: COMPLAINS OF: Anxiety Past Family Social History Allergies: Coded Allergies: No Known Allergies (Unverified , 04/23/17) Past Medical History ESRD HTN Diabetes Multiple myeloma Anemia HPTH Past Surgical History Bone marrow biopsy PermCath Reported Medications Reported Meds & Active Scripts Active Reported Valacyclovir (Valacyclovir HCl) 500 Mg Tab 500 Mg PO DAILY Dexamethasone 4 Mg Tab 20 Mg PO WEEKLY Multiple Vitamin 1 Tab 1 Tab PO DAILY Sodium Bicarbonate 650 Mg Tab 650 Mg PO BIDPC Amlodipine (Amlodipine Besylate) 5 Mg Tab 5 Mg PO DAILY Vitamin B12 (Cyanocobalamin) 500 Mcg Tab 1,000 Mcg PO DAILY Glipizide 5 Mg Tab 5 Mg PO BIDAC Take 30 minutes before a meal Atorvastatin (Atorvastatin Calcium) 40 Mg Tab 40 Mg PO HS Flomax (Tamsulosin HCl) 0.4 Mg Cap 0.4 Mg PO HS Ecotrin Low Strength (Aspirin) 81 Mg Tabdr 81 Mg PO DAILY Active Ordered Medications Current Medications Medications (Trade) Dose Ordered Sig/Karel Route Start Time Stop Time Status Last Admin (NS Flush) 2 ml UNSCH PRN IV FLUSH 04/23/17 17:00 (NS Flush) 2 ml BID IV FLUSH 04/23/17 21:00 (Tylenol) 650 mg Q4H PRN PO 04/23/17 17:00 (Zofran Inj) 4 mg Q6H PRN IVP 04/23/17 17:00 ([place] 5-325 Mg) 1 tab Q4H PRN PO 04/23/17 17:00 (Narcan Inj) 0.4 mg UNSCH PRN IV PUSH 04/23/17 17:00 (Kendy-Colace) 1 tab BID PO 04/23/17 21:00 (Milk Of Magnesia Liq) 30 ml Q12H PRN PO 04/23/17 17:00 (Senokot) 17.2 mg Q12H PRN PO 04/23/17 17:00 (Dulcolax Supp) 10 mg DAILY PRN RECTAL 04/23/17 17:00 (Lactulose Liq) 30 ml DAILY PRN PO 04/23/17 17:00 (Norvasc) 5 mg DAILY PO 04/24/17 09:00 (Ecotrin Ec) 81 mg DAILY PO 04/24/17 09:00 (Lipitor) 40 mg HS PO 04/23/17 21:00 (Vitamin B12) 1,000 mcg DAILY PO 04/24/17 09:00 (Sodium Bicarbonate) 650 mg BIDPC PO 04/23/17 18:00 (Flomax) 0.4 mg HS PO 04/23/17 21:00 (Valtrex) 500 mg DAILY PO 04/24/17 09:00 (Theragran) 1 tab DAILY PO 04/24/17 09:00 (D50w (Vial) Inj) 50 ml UNSCH PRN IV PUSH 04/23/17 17:00 (Glucagon Inj) 1 mg UNSCH PRN OTHER 04/23/17 17:00 (NovoLOG SUPPLEMENTAL SCALE) 1 ACHS SLIDING SCALE SQ 04/23/17 17:00 (Catapres) 0.1 mg Q6H PRN PO 04/23/17 17:30 Family History noncontributory Social History denies smoking/ETOH Physical Exam Vital Signs Vital Signs Date Time Temp Pulse Resp B/P (MAP) Pulse Ox O2 Delivery O2 Flow Rate FiO2 04/23/17 17:08 98 18 216/105 (142) 96 Room Air 04/23/17 15:15 93 18 188/98 (128) 99 Room Air 04/23/17 14:53 98.2 100 18 196/98 (130) 98 Physical Exam GENERAL: Well-nourished, well-developed patient. SKIN: Warm and dry. HEAD: Normocephalic. EYES: No scleral icterus. No injection or drainage. NECK: Supple, trachea midline. No JVD or lymphadenopathy. CARDIOVASCULAR: Regular rate and rhythm without murmurs, gallops, or rubs. rash left side chest, PermCath right side RESPIRATORY: Breath sounds equal bilaterally. No accessory muscle use. GASTROINTESTINAL: Abdomen soft, non-tender, nondistended. EXTREMITIES: No cyanosis, or edema. NEUROLOGICAL: Awake, alert, and oriented x 3. Non-focal. Laboratory Laboratory Tests Test 04/23/17 15:30 White Blood Count 5.8 Red Blood Count 2.71 Hemoglobin 8.3 Hematocrit 24.7 Mean Corpuscular Volume 91.2 Mean Corpuscular Hemoglobin 30.5 Mean Corpuscular Hemoglobin Concent 33.4 Red Cell Distribution Width 11.9 Platelet Count 118 Mean Platelet Volume 9.9 Neutrophils (%) (Auto) 68.7 Lymphocytes (%) (Auto) 16.1 Monocytes (%) (Auto) 14.5 Eosinophils (%) (Auto) 0.3 Basophils (%) (Auto) 0.4 Neutrophils # (Auto) 4.1 Lymphocytes # (Auto) 0.9 Monocytes # (Auto) 0.8 Eosinophils # (Auto) 0.0 Basophils # (Auto) 0.0 CBC Comment DIFF FINAL Differential Comment Blood Urea Nitrogen 59 Creatinine 6.00 Random Glucose 140 Total Protein 6.6 Albumin 3.1 Calcium Level 8.3 Alkaline Phosphatase 49 Aspartate Amino Transf (AST/SGOT) 7 Alanine Aminotransferase (ALT/SGPT) 13 Total Bilirubin 0.6 Sodium Level 136 Potassium Level 4.3 Chloride Level 104 Carbon Dioxide Level 22.3 Anion Gap 10 Estimat Glomerular Filtration Rate 9 Total Creatine Kinase 65 Troponin I 0.09 Lipase 212 Date/Time Source Procedure Growth Status 04/23/17 15:00 Throat Group A Streptococcus Screen Pending Received Result Diagram: 04/23/17 1530 04/23/17 1530 Assessment and Plan Problem List: (1) ESRD (end stage renal disease) on dialysis ICD Codes: N18.6 - End stage renal disease; Z99.2 - Dependence on renal dialysis Plan: I have placed orders for am dialysis, his rash is not painful keep observing for eruptions discussed with dialysis nurse I adjusted Amlodipine to 5 mg bid, continue with out patient BP medications (2) Uncontrolled hypertension ICD Codes: I10 - Essential (primary) hypertension Plan: Amlodipine increased to 5 mg bid (3) Generalized weakness ICD Codes: R53.1 - Weakness Status: Acute Plan: likely due to ESRD (4) Anemia ICD Codes: D64.9 - Anemia, unspecified Status: Acute Plan: On Epogen Problem Qualifiers (1) Anemia: Qualified Codes: N18.6 - End stage renal disease; D63.1 - Anemia in chronic kidney disease; Z99.2 - Dependence on renal dialysis Stuart Buchanan MD Apr 23, 2017 17:45
[2017-04-23 17:47] VITALS: BP 184/97; PULSE 90; RESP 18; O2SAT 96
[2017-04-23 20:00] VITALS: BP 159/93; PULSE 83; RESP 20; TEMP 97.5; O2SAT 99
[2017-04-23 21:00] VITALS: O2SAT 98
[2017-04-23] MEDS ORDERED: TAMSULOSIN HCL 0.4 MG CAP PO SCH (21:00)
[2017-04-23] MEDS ORDERED: ATORVASTATIN 40 MG TAB PO SCH (21:00)
[2017-04-23] MEDS: DOCUSATE SODIUM 50 MG/SENNA 8.6 MG TAB PO SCH (21:08)
[2017-04-23] MEDS: amLODIPine BESYLATE 5 MG TAB PO SCH (21:08)
[2017-04-23] MEDS: SODIUM CHLORIDE 0.9% FLUSH 10 ML FLUSH IV FLUSH SCH (21:08)
[2017-04-23] MEDS: SODIUM BICARBONATE 325 MG TAB PO SCH (22:07)
[2017-04-24] VITALS: BP 159/89; PULSE 91; RESP 20; TEMP 97.7; O2SAT 96
[2017-04-24 07:30] VITALS: O2SAT 97
[2017-04-24] MEDS: INSULIN ASPART SUPPLEMENTAL SCALE SQ SCH ×2 (08:00→12:00)
[2017-04-24] MEDS ORDERED: valACYclovir HCL 500 MG TAB PO SCH (09:00)
[2017-04-24] MEDS ORDERED: ASPIRIN EC 81 MG TABEC PO SCH (09:00)
[2017-04-24] MEDS ORDERED: MULTIVITAMIN TAB PO SCH (09:00)
[2017-04-24] MEDS ORDERED: CYANOCOBALAMIN 100 MCG TAB PO SCH (09:00)
[2017-04-24] MEDS ORDERED: amLODIPine BESYLATE 5 MG TAB PO SCH (09:00)
[2017-04-24 12:00] VITALS: BP 130/77; PULSE 71; RESP 19; TEMP 97.5; O2SAT 95
--- NOTE | 2017-04-24 12:21 | HHI.FF ---
Face to Face Verification Diagnosis: (1) Generalized weakness (2) ESRD (end stage renal disease) on dialysis (3) Uncontrolled hypertension Physical Therapy Order: Evaluate and Treat Home Health Nursing Order: Nursing assessment with vital signs I have seen patient Bárbara Wiggins on 04/24/17. My clinical findings support the need for the requested home health care services because: Need for psychosocial assistance I certify that my clinical findings support that this patient is homebound because: Need for psychosocial assistance Barbara Rm MD Apr 24, 2017 12:21
[2017-04-24] MEDS ORDERED: AMLO5TAB2 PO (12:22)
--- NOTE | 2017-04-24 12:23 | HHI.PR ---
Subjective Remarks patient states he feels better, wants to go home. denies any pain. at bedside says he has been slowing down for weeks, sleeps much of the day, and she has to wait on him more - she requests [facility]. Objective Vitals Vital Signs Date Time Temp Pulse Resp B/P (MAP) Pulse Ox O2 Delivery O2 Flow Rate FiO2 04/24/17 07:30 97 21 04/24/17 00:00 97.7 91 20 159/89 (112) 96 04/23/17 21:00 98 21 04/23/17 20:00 97.5 83 20 159/93 (115) 99 04/23/17 18:20 04/23/17 17:48 18 04/23/17 17:47 90 18 184/97 (126) 96 Room Air 04/23/17 17:08 98 18 216/105 (142) 96 Room Air 04/23/17 15:15 93 18 188/98 (128) 99 Room Air 04/23/17 14:53 98.2 100 18 196/98 (130) 98 I/O 04/23/17 04/23/17 04/23/17 04/24/17 04/24/17 04/24/17 07:00 15:00 23:00 07:00 15:00 23:00 Intake Total 0 ml Output Total 2500 ml Balance 0 ml -2500 ml Intake Oral 0 ml Output Hemodialysis 2500 ml # Voids 1 Result Diagram: 04/23/17 1530 04/23/17 1530 Objective Remarks GENERAL: Well-nourished, well-developed patient. SKIN: Warm and dry. scattered vesicles over left chest with associated erythema , no warmth to touch. HEAD: Normocephalic. EYES: No scleral icterus. No injection or drainage. NECK: Supple, trachea midline. No JVD or lymphadenopathy. CARDIOVASCULAR: Regular rate and rhythm without murmurs, gallops, or rubs. RESPIRATORY: Breath sounds equal bilaterally. No accessory muscle use. GASTROINTESTINAL: Abdomen soft, non-tender, nondistended. EXTREMITIES: No cyanosis, or edema. NEUROLOGICAL: Awake, alert, and oriented x 3. Non-focal. A/P Problem List: (1) Generalized weakness ICD Code: R53.1 - Weakness Status: Acute Assessment and Plan -Generalized weakness. improved, ambulating well. Urinalysis chest x-ray are clear. -Shingles of anterior chest wall. Continue Valtrex. -Hypertensive urgency. improved. norvasc increased to BID. -End-stage renal disease and just started dialysis last Saturday. He has a right chest permacath. His miter cutter is Dr. Buchanan. s/p dialysis this morning. -Mild elevated troponin 0.10. The patient states that he had a catheterization with stent 20 years ago. He adamantly denies any chest pain other than the several days ago he had some pain over the left chest where the shingles rashes. Will not trend any further troponin due to his absence of symptoms as the mild elevation is likely due to his poor kidney function and hypertensive urgency. -Type [address] on sliding scale insulin. -BPH. Continue Flomax. -Anemia of chronic kidney disease. stable. -DVT prophylaxis with SCDs. Discharge Planning DC home today with HHC. F/u with Dr. Buchanan. F/u with PCP within 1 week. Barbara Rm MD Apr 24, 2017 12:23
[2017-04-24] MEDS: SODIUM CHLORIDE 0.9% FLUSH 10 ML FLUSH IV FLUSH SCH (12:39)
[2017-04-24] MEDS: amLODIPine BESYLATE 5 MG TAB PO SCH (12:40)
[2017-04-24] MEDS: SODIUM BICARBONATE 325 MG TAB PO SCH (12:40)
[2017-04-24] MEDS: DOCUSATE SODIUM 50 MG/SENNA 8.6 MG TAB PO SCH (12:40)
--- NOTE | 2017-04-24 14:21 | EKG ---
Date Performed: 04/23/2017 Time Performed: 14:59:13 PTAGE: 86 years EKG: Sinus rhythm WITH OCCASIONAL PREMATURE VENTRICULAR COMPLEXES BORDERLINE ECG NO PREVIOUS TRACING DOCTOR: Dale Carrillo Interpretating Date/Time 04/24/2017 14:19:55
== END 2017-04-24 14:30 | disposition home health service (06) ==
LOC: PHED 14:48 → PHEDA 17:01 → PH5A 19:00
PROVIDERS: ADMIT Family Medicine; ATTEND Family Medicine
DX: R53.1 Weakness (principal); B02.9 Zoster without complications; I16.0 Hypertensive urgency; R07.9 Chest pain, unspecified; M54.2 Cervicalgia; R06.02 Shortness of breath; R74.8 Abnormal levels of other serum enzymes; E11.22 Type 2 diabetes mellitus with diabetic chronic kidney disease; I12.0 Hypertensive chronic kidney disease with stage 5 chronic kidney disease or end stage renal disease; N18.6 End stage renal disease; D63.1 Anemia in chronic kidney disease; K75.9 Inflammatory liver disease, unspecified; C90.00 Multiple myeloma not having achieved remission; N40.0 Benign prostatic hyperplasia without lower urinary tract symptoms; Z99.2 Dependence on renal dialysis; Z95.5 Presence of coronary angioplasty implant and graft; Z85.828 Personal history of other malignant neoplasm of skin; Z79.899 Other long term (current) drug therapy
CPT/HCPCS: 70450; 71010; 80053; 82550; 82948; 83690; 84484; 85025; 87081; 87804; 87880; 93005; 96372; 96374; 96375; 97161; 99285; G0257; G0378; G8987; G8988; J1580; J1644; J1815; Q4081; 90935